=== PATIENT | male | born 1970 | race Caucasian/White ===

== ENCOUNTER 2017-08-01 08:48 | Observation (INO) | payer SELFPAY ==
[~2017-08-01] VITALS: Ht 165.1 cm; Wt 58.8 kg
[~2017-08-01 08:48] MED LIST: MUPIROCIN2 % EX; NAPROSYN250 MG OR; NO HOME MEDS; ULTRAM50 MG OR
--- NOTE | 2017-08-01 08:50 | NUR ---
PT TO ROOM VIA WHEELCHAIR.
--- NOTE | 2017-08-01 09:23 | NUR ---
PATIENT REPORT CHEST PAIN MID STRENAL, RATES 4/10 AFTER 0.4 MG OF SL NITRO. DENIES ANY NAUSEA. CALL LIGHT WITHIN REACH, WILL CONTINUE TO MONITOR.
[2017-08-01 09:24] LABS: HEMATOCRIT 47.1 % (39.0-50.0); HEMOGLOBIN 16.1 g/dl (14.0-18.0); IMMATURE GRANULOCYTES 0.3 % (0.0-1.0); MEAN CORPUSCULAR HGB CONC 34.2 g/L CALC (32.0-36.0); NEUT# 3.13 thou/uL (1.82-7.42); RED BLOOD COUNT 4.74 mill/uL (4.70-6.10); RED CELL DISTRI WIDTH 12.1 % (11.5-15.5)
[2017-08-01 09:37] LABS: ANION GAP 22 (6-22 (CALC)); BUN 11 mg/dL (9-20); BUN/CREATININE RATIO 15 (12-20 (CALC)); CARBON DIOXIDE 22 mmol/l (22-30); CHLORIDE 106 mmol/l (95-108); CREATININE 0.7 mg/dL (0.7-1.3); GFR > 60 ML/MIN (>=60 (CALC)); GFR FOR AFR.AMER. > 60 ML/MIN (>=60 (CALC)); POTASSIUM 4.3 mmol/l (3.5-5.1); SODIUM 145 mmol/l (137-146)
[2017-08-01 09:40] LABS: MEAN CELL VOLUME 99.4 fL CALC (80.0-100.0)
--- NOTE | 2017-08-01 10:09 | NUR ---
SBAR PRINTED TO FLOOR
--- NOTE | 2017-08-01 10:21 | NUR ---
PATIENT RESTING ON STRETCHER, ALERT AND ORIENTED. REPORTS CONTINUED PARESTHESIA TO BILATERAL UPPER AND LOWER EXTREMITIES, DENIES CHEST PRESSURE AT THIS TIME. UPDATED ON PLAN OF CARE. VERBAL UNDERSTANDING.
--- NOTE | 2017-08-01 10:31 | NUR ---
REPORT GIVEN TO DES MENARD.
--- NOTE | 2017-08-01 11:00 | NUR ---
PATIENT TRANSPORTED TO [facility] WITH TELE VIA STRETCHER, BEDSIDE REPORT GIVEN TO DES MENARD. CARE RELINQUISHED.
--- NOTE | 2017-08-01 11:05 | NUR ---
PT ARRIVED VIA WC ACCOMPANIED BY STAFF. IV SITE IS FREE FROM REDNESS OR EDEMA. TELE MONITOR IN PLACE.
[2017-08-01 11:36] VITALS: BP 119/73
--- NOTE | 2017-08-01 11:45 | NUR ---
ASSESSMENT IS COMPLETED: PT HAS CLEAR LUNGS, HR IS REG, PULSES ARE STRONG. ABD IS SOFT. PT CONTINUES TO C/O NUMBNESS ON ARMS AND HANDS. PACING IN THE ROOM AND [facility]OV[facility] WAY. CONTINUE TO OSBERVE AND MONITOR.
--- NOTE | 2017-08-01 12:00 | NUR ---
PT HAS BEEN AMBULATING IN THE [place] WANTING TO GO AND SMOKE INQUIRING ABOUT THE DR. INFORMED THAT THE DR IS IN THE BUILDING.
--- NOTE | 2017-08-01 14:00 | NUR ---
PT HAD AMBULATED OFF THE UNIT TO SMOKE WITH FAMILY
[2017-08-01 16:31] VITALS: BP 134/84
--- NOTE | 2017-08-01 17:35 | NUR ---
PT SIGNED OUT AMA. [employer] COORDINATOR WENT TO SPEAK WITH PT. AND PT WANTED TO GO HOME. IV SITE HAS BEEN TAKEN OFF AND TELE MONITOR TAKEN OFF. INFORMED DR. SADLER.
== END 2017-08-01 17:25 | disposition left against medical advice (07) | DRG 313 ==
LOC: ED 08:48 → ED-I 09:53 → ED 10:06 → MS2 10:07
PROVIDERS: Family Medicine; ADMIT Hospitalist; ATTEND Hospitalist
DX: R07.9 Chest pain, unspecified (principal); F17.210 Nicotine dependence, cigarettes, uncomplicated
CPT/HCPCS: G0378

== ENCOUNTER 2023-06-09 17:06 | Emergency (ER) | payer SELFPAY ==
[~2023-06-09] VITALS: Ht 165.1 cm; Wt 53.6 kg
[2023-06-09 17:14] VITALS: BP 145/89
[2023-06-09] MEDS ORDERED: SODIUM CHLORIDE 0.9% 1,000 ML IV ONE (17:25)
[2023-06-09 17:30] VITALS: BP 127/76
[2023-06-09 18:00] VITALS: BP 132/80
[2023-06-09 18:14] LABS: GFR FOR AFR.AMER. > 60 ML/MIN (>=60 (CALC)); GFR OTHER RACES > 60 ML/MIN (>=60 (CALC))
[2023-06-09 18:20] LABS: BASO% 0.4 % (0-3); HEMATOCRIT 45.2 % (39.0-50.0); IMMATURE GRANULOCYTES 0.3 % (0.0-5.0); LYMPH% 30.2 % (15-41); MEAN CELL VOLUME 101.3 fL CALC (80.0-100.0); MEAN CORPUSCULAR HGB 33.6 pG CALC (26.0-32.0); MEAN CORPUSCULAR HGB CONC 33.2 g/dL CAL (32.0-36.0); NEUT# 3.88 thou/uL (1.82-7.42); NEUT% 56.1 % (42-76); RED BLOOD COUNT 4.46 mill/uL (4.70-6.10); RED CELL DISTRI WIDTH 11.8 % (11.5-15.5)
[2023-06-09 18:23] LABS: ALBUMIN 4.5 g/dL (3.2-5.0); ALKALINE PHOSPHATASE 83 u/l (38-126); BILIRUBIN, TOTAL 0.6 mg/dL (0.2-1.3); BUN 15 mg/dL (9-20); BUN/CREATININE RATIO 23 (12-20 (CALC)); CHLORIDE 104 mmol/l (95-108); CREATININE 0.7 mg/dL (0.7-1.3); GFR FOR AFR.AMER. > 60 ML/MIN (>=60 (CALC)); GFR OTHER RACES > 60 ML/MIN (>=60 (CALC)); SGOT/AST 43 u/l (17-59); TOTAL PROTEIN 7.4 g/dL (6.3-8.2)
[2023-06-09 18:30] VITALS: BP 158/81
[2023-06-09 18:35] LABS: ANION GAP 9 (6-22 (CALC)); CARBON DIOXIDE 28 mmol/l (22-30); SODIUM 137 mmol/l (137-146)
[2023-06-09] MEDS ORDERED: MECLIZINE25 MG PO (21:21)
[2023-06-09 21:25] VITALS: BP 158/81
== END 2023-06-09 21:33 | disposition home or self-care (01) | DRG 149 ==
LOC: ED 17:06
PROVIDERS: Family Medicine
DX: R42 Dizziness and giddiness (principal); S39.011A Strain of muscle, fascia and tendon of abdomen, initial encounter; F17.210 Nicotine dependence, cigarettes, uncomplicated; X58.XXXA Exposure to other specified factors, initial encounter; Z20.822 Contact with and (suspected) exposure to COVID-19
CPT/HCPCS: Q9967